=== PATIENT | female | born 1930 | race Caucasian/White ===

== ENCOUNTER → 2017-08-28 | Outpatient (CLI) | payer MEDICARE, OTHER | END | disposition home or self-care (01) | LOC: PCVCCLINIC 15:40 | DX: Z01.812 Encounter for preprocedural laboratory examination (principal); I70.1 Atherosclerosis of renal artery; K55.1 Chronic vascular disorders of intestine; I15.0 Renovascular hypertension; J44.9 Chronic obstructive pulmonary disease, unspecified; K50.119 Crohn's disease of large intestine with unspecified complications; F17.210 Nicotine dependence, cigarettes, uncomplicated; I73.9 Peripheral vascular disease, unspecified | CPT/HCPCS: 36415; G0463 ==

== ENCOUNTER → 2017-09-19 | Outpatient (CLI) | payer MEDICARE, OTHER ==
[~2017-09-19] MED LIST: CLOPIDOGREL BISULFATE 75 MG TABLET; DIAZEPAM 10 MG TABLET.; EPINEPHrine 1 MG/ML VIAL; HEPARIN SODIUM 5,000 UNIT/ML VIAL for PCVC.; IOHEXOL 300 MG/ML 100ML VIAL.; IV NORMAL SALINE 1000ML BAG 1,000 ML; LIDOCAINE 1% Multi-Dose 20 ML VIAL.; MIDAZOLAM HCL/PF 2 MG/2 ML VIAL.; ONDANSETRON PF 4 MG/2 ML VIAL.; ceFAZolin SODIUM 1 GM VIAL; fentaNYL PF VIAL 100 MCG/2 ML VIAL; hydrALAZINE 20 MG/ML VIAL.
== END | disposition home or self-care (01) ==
LOC: PCVCIMAG 07:51
DX: I73.9 Peripheral vascular disease, unspecified (principal); I70.1 Atherosclerosis of renal artery; K55.1 Chronic vascular disorders of intestine
CPT/HCPCS: 36245; 36252; 37236; 37237; 75630; 75726; 76937; 93880; 93931; 99152; 99153; C1725; C1751; C1760; C1769; C1876; C1887; C1894; J0171; J0360; J0690; J1644; J2250; J2405; J3010; J7030; Q9967

== ENCOUNTER → 2018-03-19 | Outpatient (CLI) | payer MEDICARE, OTHER | END | disposition home or self-care (01) | LOC: PCVCIMAG 12:40 | DX: K55.1 Chronic vascular disorders of intestine (principal); I10 Essential (primary) hypertension | CPT/HCPCS: 76770; 93975; G0463 ==